=== PATIENT | male | born 1970 | race Caucasian/White ===

== ENCOUNTER 2020-05-09 07:09 | Outpatient (REF) | payer OTHER, SELFPAY | END 2020-05-09 07:10 | disposition home or self-care (01) | LOC: HO.LAB 07:09 | PROVIDERS: PCP Internal Medicine; Visit Provider Internal Medicine | DX: Z20.828 Contact with and (suspected) exposure to other viral communicable diseases (principal) | CPT/HCPCS: C9803; U0003 ==

== ENCOUNTER 2024-04-23 08:40 | Outpatient (REF) | payer OTHER, SELFPAY ==
[2024-04-23 10:24] LABS: Estimated Average Glucose 174 mg/dL; Hemoglobin A1C 233.4804 umol/L; Hemoglobin A1c % 7.7 % (<6.0); Total Hemoglobin (HGBA1C) 3843.4324 umol/L
[2024-04-23 11:02] LABS: Alanine Aminotransferase 23 U/L (0-40); Albumin Level 4.2 g/dL (3.5-5.0); Alkaline Phosphatase 56 U/L (39-117); Anion Gap 12 (12-20); Aspartate Amino Transferase 23 U/L (5-37); Bilirubin Total 1.1 mg/dL (0.0-1.0); Blood Urea Nitrogen 15 mg/dL (9-16); Calcium 9.4 mg/dL (8.4-10.2); Carbon Dioxide 23 mmol/L (22-29); Chloride 108 mmol/L (96-108); Cholesterol 125 mg/dL (<200); Estimated Glomerular Filt Rate > 60; Glucose Random 139 mg/dL (60-115); HDL Cholesterol 44 mg/dL (>40); LDL Cholesterol Calculated 63 mg/dL (<100); Potassium 3.7 mmol/L (3.3-5.1); Sodium 139 mmol/L (135-145); Total Protein 7.2 g/dL (6.5-8.0); Triglycerides 90 mg/dL (<150)
[2024-04-23 11:21] LABS: Prostate Specific Antigen 1.25 ng/mL (<0.05-4.0)
[2024-04-23 11:47] LABS: Creatinine Urine 172.33 mg/dL; Microalbum/Creatinine Ratio Ur 48.7 ug/mg cr (<30)
== END 2024-04-23 08:41 | disposition home or self-care (01) ==
LOC: HO.LAB 08:40
PROVIDERS: PCP Internal Medicine; Visit Provider Internal Medicine
DX: Z00.01 Encounter for general adult medical examination with abnormal findings (principal); E11.65 Type 2 diabetes mellitus with hyperglycemia; E78.00 Pure hypercholesterolemia, unspecified; I10 Essential (primary) hypertension; N40.0 Benign prostatic hyperplasia without lower urinary tract symptoms; Z12.5 Encounter for screening for malignant neoplasm of prostate
CPT/HCPCS: 36415; 80053; 80061; 82043; 82570; 83036; 84153

== ENCOUNTER 2024-06-18 14:11 | Outpatient (AMB) | payer OTHER, SELFPAY ==
--- NOTE | 2024-06-18 14:23 | A.OFFVIS_ITS ---
Intake Visit Reasons: lipoma of the back Intake Note: Patient is seen in office for evaluation of a lipoma of the back. Pt c/o: 2 lumps on the back, for aprox 8 months, has increase in size, painful with lifting and when lying down, denies redness, discharge or other concerns Group Billing Coordinator Required: No Accompanied by: Self / Same As Patient Allergies lisinopril Adverse Reaction (Intermediate, Verified 06/18/24 14:31) Unknown cow milk Adverse Reaction (Mild, Uncoded 06/18/24 14:31) Unknown egg whites Adverse Reaction (Mild, Uncoded 06/18/24 14:31) Unknown Medication List - Last Reconciled 06/18/24 by Michael Bay MD No Known Home Meds HPI Comments Details: 54-year-old male patient presenting with a soft tissue mass in the back. He 1st noted the lump several months ago and now feels a 2nd 1 slightly higher in the back. She reports pain especially after working out. He denies any changes in the skin including redness or discharge. He presents today to discuss possible removal. He denies a previous history of similar lesions in other parts of his body. [facility] Surgical History History of ankle surgery Social History Alcohol intake: current Alcohol intake frequency: holidays/special occasions only Patient Tobacco Use Status: Never used Tobacco Review of Systems Const All systems reviewed & are unremarkable except as noted in HPI and below Physical Exam Const General: cooperative and no acute distress Nutritional Appearance: well nourished Orientation/consciousness: patient oriented x3 Limitations: no limitations HEENT Head: Yes normocephalic and Yes atraumatic Ears: hearing grossly normal bilaterally Resp Effort & Inspection: normal respiratory effort, no audible wheezes, no cough and no respiratory distress Cardio Jugular venous distension: no JVD GI Inspection: Yes normal to inspection Back/Spine/Pelvis Other: Patient points to 2 lesions in the midline upper back as noted below Back/spine/pelvis image: 2 1. Hard nonmobile midline structure most consistent with thoracic spine. No soft tissue mass identified in this region. 2. Soft tissue mass, mobile within the subcutaneous tissue most consistent with a lipoma measuring approximately 4 cm in diameter. Skin Other: Warm, dry, no rash Neuro General: patient oriented x3 Extrem General: Yes no clubbing, cyanosis or edema Assessment & Plan Assessment & Plan (1) Lipoma: Code(s): D17.9 - Benign lipomatous neoplasm, unspecified Category: Medical Qualifiers: Lipoma location: trunk Qualified Code(s): D17.1 - Benign lipomatous neoplasm of skin and subcutaneous tissue of trunk Plan Patient presents with 2 palpable abnormalities 1 which appears most consistent with a lipoma in the lower thoracic spine and a 2nd which appears more consistent with the curvature of the spine. To be sure, I recommended an ultrasound of the soft tissue. He will return following the ultrasound to review the results and discuss treatment options. Orders: Orders 2 US chest Today D17.9 - Benign lipomatous neoplasm, unspecified Coding Level of Care Code New Pt Level 4 (00967) Diagnoses Lipoma of torso D17.1 Lipoma location: trunk
== END 2024-06-18 14:42 | disposition home or self-care (01) ==
PROVIDERS: PCP Internal Medicine; Visit Provider Surgery
DX: D17.1 Benign lipomatous neoplasm of skin and subcutaneous tissue of trunk (principal)
CPT/HCPCS: 99204

== ENCOUNTER 2024-07-02 16:18 | Outpatient (REF) | payer OTHER, SELFPAY ==
--- NOTE | ~2024-07-02 | US_ITS ---
CLINICAL HISTORY: D17.9 - Benign lipomatous neoplasm, unspecified Soft tissue ultrasound-back Comparison: None Findings: Directed soft tissue ultrasound performed of regions of concern, with region labeled as upper posterior back 1 demonstrating prominent subcutaneous fat. Conceivably could be demarcated unencapsulated lipoma. No other solid components or obvious septations. No well-defined margin. On on images labeled as posterior upper back to, calcific density with shadowing suggesting bony prominence, which may correlate to palpable abnormality. Otherwise no focal definable mass in either region by ultrasound. No fluid collection. No appreciable edema. Regions were not interrogated with Doppler and can not assess for hyperemia. Impression: Prominent subcutaneous adipose tissue appearing to correlate to lesion in the upper back as well as a bony prominence to 2nd area of concern. Further characterization limited with ultrasound. If clinically suspicious or concerning finding, consider additional correlation with CT or MRI. This document has been electronically signed by: Harpal Day MD on 07/03/2024 13:22:55
== END 2024-07-02 16:19 | disposition home or self-care (01) ==
LOC: HO.US 16:18
PROVIDERS: PCP Internal Medicine; Visit Provider Surgery
DX: D17.9 Benign lipomatous neoplasm, unspecified (principal)
CPT/HCPCS: 76604

== ENCOUNTER → 2024-07-02 16:20 | Outpatient (BNV) | payer OTHER, SELFPAY | PROVIDERS: PCP Internal Medicine; Visit Provider Radiology Diagnostic Radiology | DX: D17.9 Benign lipomatous neoplasm, unspecified (principal) | CPT/HCPCS: 76604 ==

== ENCOUNTER 2024-07-18 15:29 | Outpatient (AMB) | payer OTHER, SELFPAY ==
--- NOTE | 2024-07-18 15:35 | MHC.OFFVIS ---
Vital Signs 07/18/24 15:40 Height 5 ft 10 in Weight 217 lb BMI 31.1 BP 120/82 Blood Pressure Location Lt brachial Position Sitting Intake Visit Reasons: s/p US Chest from 07/02/24 Intake Note: Patient is seen in office for ultrasound results, following lipoma of the back. Pt c/o: denies any concerns or changes at the time of visit, here for results us:07/03/24 Clubhouse Attendant Required: No Accompanied by: Self / Same As Patient Allergies lisinopril Adverse Reaction (Intermediate, Verified 07/18/24 15:38) Unknown cow milk Adverse Reaction (Mild, Uncoded 07/18/24 15:38) Unknown egg whites Adverse Reaction (Mild, Uncoded 07/18/24 15:38) Unknown HPI Comments Details: 54-year-old male patient presenting with a soft tissue mass in the back. He 1st noted the lump several months ago and now feels a 2nd 1 slightly higher in the back. He reports pain especially after working out. He denies any changes in the skin including redness or discharge. He presents today to discuss possible removal. He denies a previous history of similar lesions in other parts of his body. He underwent evaluation with an ultrasound of the back. This confirmed a lipoma in the lower lesion however the upper lesion is consistent with the spine. No lipoma is noted in this location [facility] Surgical History History of ankle surgery Social History Alcohol intake: current Alcohol intake frequency: holidays/special occasions only Patient Tobacco Use Status: Never used Tobacco Review of Systems Const All systems reviewed & are unremarkable except as noted in HPI and below Physical Exam Vital Signs: Last Vital Signs BP 120/82 07/18/24 15:40 BMI result Body Mass Index 31.1 Const General: cooperative and no acute distress Nutritional Appearance: well nourished Orientation/consciousness: patient oriented x3 Limitations: no limitations HEENT Head: Yes normocephalic and Yes atraumatic Ears: hearing grossly normal bilaterally Resp Effort & Inspection: normal respiratory effort, no audible wheezes, no cough and no respiratory distress Cardio Jugular venous distension: no JVD GI Inspection: Yes normal to inspection Back/Spine/Pelvis Other: Patient points to 2 lesions in the midline upper back as noted below Back/spine/pelvis image: 1. 5-6 cm lipoma upper mid back, mobile within the subcutaneous tissue Skin Other: Warm, dry, no rash Neuro General: patient oriented x3 Extrem General: Yes no clubbing, cyanosis or edema Assessment & Plan Assessment & Plan (1) Lipoma: Code(s): D17.9 - Benign lipomatous neoplasm, unspecified Category: Medical Qualifiers: Lipoma location: trunk Qualified Code(s): D17.1 - Benign lipomatous neoplasm of skin and subcutaneous tissue of trunk Plan 54-year-old male patient presenting with a soft tissue mass in the upper midback measuring approximately 5-6 cm in diameter most consistent with a lipoma by exam and by ultrasound. Patient has requested excision of this lesion and I recommended an excision as a short-stay surgery. After discussion of the procedure, risks, and alternatives, he consents to the excision of the upper midback lipoma Coding Level of Care Code Est Pt Level 3 (46954) Diagnoses Lipoma of torso D17.1 Lipoma location: trunk
[2024-07-18 15:40] VITALS: BP 120/82; BMI 31.1
--- OUTSIDE RECORDS SUMMARY | 2024-07-18 18:23 | XMS_ITS | Encounter Summary ---
Author Organization [employer] Address [address] [place] [address] Care Team Providers Care News Production Assistant Name Role Phone Natalee Lopez MD Primary Care Provider [phone] Reason for Visit * Reason Comments Cough X 2 wks pt states co ugh is getting worse pt was seen and treated here tato 06/17/24 Encounter Details Date Type Department Care Team (Late st Contact Info) Description 07/01/2024 3:00 PM EST Office Visit [facility] - [place] [address] [place] [phone] Harpal Crump, DENTAL HYGIENE ADMINISTRATIVE ASSISTANT [address], [place] [id number] Rhinosinusitis (Primary Dx) Social History Tobacco Use Types Packs/Day Years Used Date Smoking Tobacco: Never Assessed Sex and Gender Information Value Date Recorded Sex Assigned at Not on file Gender Identity Not on file Sexual Orientation Not on file Job Start Date Occupation Industry Not on file Not on file Not on file documented as of this encounter Last Filed Vital Signs Vital Sign Reading Time Taken Comments Blood Pressure 130/78 07/01/2024 2:57 PM EST Pulse 88 07/01/2024 2:57 PM EST Temperature 36.6 ??C (97.8 ??F) 07/01/2024 2:57 PM ES T Respiratory Rate - - Oxygen Saturation 98% 07/01/2024 2:57 PM EST Inhaled Oxygen Concentration - - Weight - - Height - - Body Mass Index - - documented in this encounter Ordered Prescriptions Prescription Sig Dispensed Refills Start Date End Da te cetirizine (ZyrTEC) 10 mg tablet Take 1 tablet (10 mg total) by mouth 1 (one) time each day. 30 each 2 07/01/2024 09/29/2024 fluticasone propionate (FLONASE) 50 mcg/actuation nasal spray Administer 2 sprays into each nostril 1 (one) time each day for 14 days. Shake gently. Before first use, prime pump. After use, clean tip and replace cap. 16 g 07/01/2024 documented in this encounter Progress Notes * Harpal Crump NP - 07/01/2024 3:00 PM EST CHIEF COMPLAINT: Cough (X 2 wks pt states cough is getting worse pt was seen and treated here tato 06/17/24 ) IDENTIFIER: Tarik Ny is a 54 y.o. old male. HPI: Patient presents today complaining of cough for 2 week(s). Cough is not productive of sputum. denies shortness of breath. denies wheezing. Patient denies fevers. Patient also complains of post nasal drip and sinus and nasal congestion. Also endorses itchy ears and itchy nose. Patient was seen at this urgent care on 06/17/2024 and diagnosed with sinusitis and otitis media of both ears. He was given Augmentin and completed the entire course of antibiotic. Patient advises that symptoms did not go away. They also have not worsened ROS: GENERAL: SEE HPI HEENT: SEE HPI RESPIRATORY: See HPI CARDIOVASCULAR: SEE HPI GI: No abdominal discomfort, blood in stools or black stools PAST MEDICAL HISTORY: There are no problems to display for this patient. No past surgical history on file. SOCIAL HISTORY: Social History Tobacco Use Smoking status: Not on file Smokeless tobacco: Not on file Substance Use Topics Alcohol use: Not on file FAMILY HISTORY: No family history on file. No family status information on file. MEDICATIONS DISCONTINUED/REORDERED: There are no discontinued medications. ACTIVE MEDICATIONS: No outpatient medications have been marked as taking for the 07/01/24 encounter (Office Visit) with Harpal Crump NP. ALLERGIES: Allergies Allergen Reactions Lisinopril Anaphylaxis Swollen tongue PHYSICAL EXAM: Vitals: 07/01/24 1457 BP: 130/78 BP Location: Right arm Pulse: 88 Temp: 36.6 ??C (97.8 ??F) TempSrc: Temporal SpO2: 98% APPEARANCE: Alert and in no acute distress EYES: PERRL, conjunctiva and sclera normal EARS: External ears normal. Canals clear. TMs normal. NOSE/SINUS: Nares normal. Septum midline. Mucosa boggy with congestion. Turbinates with erythema. No drainage. No sinus tenderness. MOUTH/THROAT: mild erythema post pharangeal wall with PND noted and no exudates present NECK: negative HEART: RRR with normal S1 and S2, no murmurs, no gallops, no JVD appreciated LUNG: Clear to auscultation LYMPH NODES: grossly normal NEURO: Awake, alert and oriented x 3 LABS/IMAGING: Chest xray was not ordered IMPRESSION: 1. Rhinosinusitis PLAN: The patient's PMH, problem list and medications were reviewed in reference to the above diagnosis/diagnoses. *. Based on History, ROS, HPI and PE, presents hemodynamically stable in no acute distress. Well-appearing. *. Based on HPI, ROS and PE, suggestive of allergic rhinosinusitis. Patient's symptoms are consistent with a rhinosinusitis. Further Augmentin was unsuccessful. *. Prescribed Flonase and Zyrtec. Proper dosing and method to take medication addressed with patient. The risks and benefits of this medication were discussed with the patient. The patient understands the potential side effects and basic interactions of this medication. The patient is asked to callme or my colleagues if they begin to experience any difficulties with this medication. *. Educated pt to rest,proper hydration, warm steamy showers *. Advised to follow up with PCP in 14 days, if symptoms are not improving. Advised to follow up with PCP immediately for new or worsening symptoms. *. Discussed warnings signs and symptoms that would require immediate follow up at UC/ER. Patient verbalized understanding and agreement with the plan. Harpal Crump NP on 07/01/2024 at 3:11 PM EST Today's documentation was made using voice recognition software. This note may contain grammatical errors secondary to this software. documented in this encounter Plan of Treatment Not on file documented as of this encounter Visit Diagnoses Diagnosis Rhinosinusitis- Primary documented in this encounter Care Teams News Production Assistant Relationship Specialty Start Date End Date Natalee Lopez MD [address] [facility] [address] [place], [place] PCP - General Internal Medicine 04/30/20 documented as of this encounter
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
--- OUTSIDE RECORDS SUMMARY | 2024-07-18 18:23 | XMS_ITS | Clinical Summary ---
Author Organization [address] [place] [address] [place] [phone] Phone Care Team Providers Care Anatomic Pathology Manager Name Role Phone Natalee Lopez MD Primary Care Provider [phone] Allergies Active Allergy Reactions Criticality Noted Date Comments Lisinopril Anaphylaxis High 07/01/2024 Swollen tongue Medications Medication Sig Dispensed Refills Start Date End Date Status fluticasone propionate (FLONASE) 50 mcg/actuation nasal spray Administer 2 sprays into each nostril 1 (one) time each day for 14 days. Shake gently. Before first use, prime pump. After use, clean tip and replace cap. 16 g 07/01/2024 Active cetirizine (ZyrTEC) 10 mg tablet Take 1 tablet (10 mg total) by mouth 1 (one) time each day. 30 each 2 07/01/2024 09/29/2024 Active amoxicillin-clavula jerad (AUGMENTIN) 875-125 mg per tablet Take 1 tablet by mouth 2 (two) times a day for 10 days. 20 each 06/17/2024 06/27/2024 Encounters Date Type Department Care Team Description 07/01/2024 3:00 PM EST Office Visit Walk-In [address] [phone] Harpal Crump NP Rhinosinusitis (Primary Dx) 06/17/2024 4:30 PM EST Office Visit Walk-[address] [phone] Shahana Sahu NP Otitis of both ears (Primary Dx); Upper respiratory tract infection, unspecified type from Last 3 Months Social History Tobacco Use Types Packs/Day Years Used Date Smoking Tobacco: Never Assessed Sex and Gender Information Value Date Recorded Sex Assigned at Not on file Gender Identity Not on file Sexual Orientation Not on file Job Start Date Occupation Industry Not on file Not on file Not on file Last Filed Vital Signs [...] Health Maintenance Due Date Last Done Comments Hepatitis B Vaccines (3 of 3 - 19+ 3-dose series) 03/11/2004 12/18/2003, 09/09/2003 Zoster Vaccines (1 of 2) 2019 COVID-19 Vaccine ( - 2023-2 5 season) 2024 Influenza Vaccine (#1) 2024 04/02/2019 Cholesterol Screening (Lipid Panel) 06/18/2024 Colorectal Cancer Screening: Colonoscopy 06/18/2024 Depression Screening 06/18/2024 HIV Screening 06/18/2024 Hepatitis C Screening 06/18/2024 Social Influencers of Health Screening 06/18/2024 DTaP,Tdap,and Td Vaccines (2 - Td or Tdap) 11/22/2030 11/22/2020 Pneumococcal Vaccine: Pediatrics (0 to 5 Years) and At-Risk Patients (6 to 64 Years) Aged Out 01/01/2016 No longer eligible b ased on patient's age to complete this topic HIB Vaccines Aged Out No longer eligi ble based on patient's age to complete this topic HPV Vaccines Aged Out No longer eligi ble based on patient's age to complete this topic Hepatitis A Vaccines Aged Out No long er eligible based on patient's age to complete this topic IPV Vaccines Aged Out No longer eligi ble based on patient's age to complete this topic MMR Vaccines Aged Out No longer eligi ble based on patient's age to complete this topic Meningococcal ACWY Vaccine Aged Out N o longer eligible based on patient's age to complete this topic RSV Immunization Patients Under 20 months Aged Out No longer eligible b ased on patient's age to complete this topic Varicella Vaccines Aged Out No longer eligible based on patient's age to complete this topic Procedures Procedure Name Priority Date/Time Associated Diagnosis Comments POC INFLUENZA A&B BECKA Routine 06/17/2024 5:09 PM EST Upper respiratory tract infection, unspecified type POC RAPID [id number], MOLECULAR Routine 06/17/2024 5:08 PM EST Upper respiratory tract infection, unspecified type from Last 3 Months Results * POC Influenza A&B BECKA (06/17/2024 5:09 PM EST) POC Ashtyn Flu A Antigen Negative Negative POC Ashtyn Flu B Antigen Negative Negative Swab Nasopharyngeal structure / Unknown 06/17/2024 5:09 PM EST Shahana Sahu MANAGER CARD POINT OF CARE TEST E NTER/EDIT ORDERABLES * Poc Rapid [id number], MOLECULAR (06/17/2024 5:08 PM EST) COVID-19/SARS- COV-2 Rapid POC Negative Negative Internal Control Pass Yes Yes Swab Nasopharyngeal structure / Unknown 06/17/2024 5:08 PM EST Shahana Sahu MANAGER CARD POINT OF CARE TEST E NTER/EDIT ORDERABLES from Last 3 Months Care Teams Anatomic Pathology Manager Relationship Specialty Start Date End Date Natalee Lopez MD [address] PCP - General Internal Medicine 04/30/20
== END 2024-07-18 15:54 | disposition home or self-care (01) ==
PROVIDERS: PCP Internal Medicine; Visit Provider Surgery
DX: D17.1 Benign lipomatous neoplasm of skin and subcutaneous tissue of trunk (principal)
CPT/HCPCS: 99213

== ENCOUNTER → 2024-07-18 15:29 | Outpatient (BNVA) | payer OTHER, SELFPAY | PROVIDERS: PCP Internal Medicine; Visit Provider Surgery ==

== ENCOUNTER 2024-08-21 08:10 | Day surgery (SDC) | payer OTHER, SELFPAY ==
[2024-08-19 13:26] VITALS: BMI 31.1
--- NOTE | 2024-08-19 15:11 | P.CONAN_ITS ---
Documented by User: Hellen Mayberry NP 08/19/24 15:11 HPI - Anesthesia Eval Consult details Narrative: 54yo M for Large Excision Lipoma Upper Mid Back Anesthesia Pre-Procedure Meds Is the patient on any of the following meds?: GLP1/DPP4 and SGLT2 Inhib PMFSH Active Problems Active Problems: All Active Problems Lipoma (Acute) Past Medical History Medical History High cholesterol Hypertension Diabetes Surgical History Surgical History History of ankle surgery Social History Social History Alcohol intake: current Alcohol intake frequency: holidays/special occasions only Patient Tobacco Use Status: Never used Tobacco Advance Directives: No Advance Directives Information Provided: Yes Meds Allergies Allergy/AdvReac Type Severity Reaction Status Date / Time lisinopril AdvReac Unknown Unknown Verified 08/19/24 13:14 Milk Containing Products AdvReac Unknown Unknown Verified 08/19/24 13:14 (Dairy) egg whites AdvReac Unknown Unknown Uncoded 08/19/24 13:14 Home Medications ?Medication ?Instructions ?Recorded ?Confirmed ?Last Taken ?Type amlodipine 10 mg tablet 10 mg PO DAILY 06/18/24 08/19/24 Unknown History atorvastatin 80 mg tablet 80 mg PO DAILY 06/18/24 08/19/24 Unknown History carvedilol 25 mg tablet 25 mg PO BID 06/18/24 08/19/24 Unknown History dulaglutide 0.75 mg/0.5 mL 0.75 mg subcut QWEEK 06/18/24 08/19/24 Unknown History subcutaneous pen injector (Trulicity) empagliflozin 25 mg tablet 25 mg PO DAILY 06/18/24 Unknown History (Jardiance) insulin glargine 100 unit/mL 25 unit subcut BID 06/18/24 08/19/24 Unknown History subcutaneous solution (Lantus U-100 Insulin) loratadine 10 mg tablet (Allergy 10 mg PO DAILY 06/18/24 08/19/24 Unknown History Relief (loratadine)) metformin 1,000 mg tablet 1,000 mg PO DAILY 06/18/24 08/19/24 Unknown History omalizumab 150 mg/mL subcutaneous 150 mg subcut Q4W 06/18/24 08/19/24 Unknown History auto-injector (Xolair) Exam Height,Weight and Vital Signs: Height 5 ft 10 in Weight 98.43 kg Assessment and Plan Assessment Anesthesia Assessment: Chart Reviewed Documented by User: Sharee Gross MD 08/21/24 08:33 PMFSH Past Medical History Medical History High cholesterol Hypertension Diabetes Family History Family history of problems with anesthesia: No Surgical History Surgical History History of ankle surgery History of Problems with Anesthesia: No Social History Social History Alcohol intake: current Alcohol intake frequency: holidays/special occasions only Patient Tobacco Use Status: Never used Tobacco Advance Directives: No Advance Directives Information Provided: Yes Meds Allergies Allergy/AdvReac Type Severity Reaction Status Date / Time lisinopril AdvReac Unknown Unknown Verified 08/19/24 13:14 Milk Containing Products AdvReac Unknown Unknown Verified 08/19/24 13:14 (Dairy) egg whites AdvReac Unknown Unknown Uncoded 08/19/24 13:14 Home Medications ?Medication ?Instructions ?Recorded ?Confirmed ?Last Taken ?Type amlodipine 10 mg tablet 10 mg PO DAILY 06/18/24 08/19/24 Unknown History atorvastatin 80 mg tablet 80 mg PO DAILY 06/18/24 08/19/24 Unknown History carvedilol 25 mg tablet 25 mg PO BID 06/18/24 08/19/24 Unknown History dulaglutide 0.75 mg/0.5 mL 0.75 mg subcut QWEEK 06/18/24 08/19/24 Unknown H istory subcutaneous pen injector (Trulicity) empagliflozin 25 mg tablet 25 mg PO DAILY 06/18/24 Unknown History (Jardiance) insulin glargine 100 unit/mL 25 unit subcut BID 06/18/24 08/19/24 Unknown History subcutaneous solution (Lantus U-100 Insulin) loratadine 10 mg tablet (Allergy 10 mg PO DAILY 06/18/24 08/19/24 Unknown History Relief (loratadine)) metformin 1,000 mg tablet 1,000 mg PO DAILY 06/18/24 08/19/24 Unknown History omalizumab 150 mg/mL subcutaneous 150 mg subcut Q4W 06/18/24 08/19/24 Unknown History auto-injector (Xolair) Exam Airway Mallampati Class: II TM Dist: >3cm Neck ROM: Full Heart: rrr Lungs: cta Assessment and Plan Assessment Anesthesia Assessment: Anesthesia Plan Discussed Final Anesthetic Review Family History of Problems with Anesthesia: No History of Problems with Anesthesia: No NPO: Yes ASA Class: III Final Preanesthetic Review: No Changes in Pt Med Stat, Meds/Allgs Chart Reviewed, Consent Obtained/Reviewed and Anes Risks/Benef Reviewed Patient Risk: Intermediate Procedure Risk: Low Anesthetic Plan Anesthetic Plan: GA and MAC: Disposition: Standard PACU
--- NOTE | 2024-08-21 08:30 | MHC.SHP ---
Pre-Procedural Eval Section A - 24 Hr Update-Section A only Date of Service: 08/21/24 The patient is an INPATIENT: No Changes since office visit: Yes Patient answered all questions; No Cold of Flu in the past 2 weeks, No New Medical Problems and No Changes in Medication The patient has been examined within 24 hours of the surgical procedure. The History & Physical has been completed within 30 days and I have reviewed it.: No Section B - Complete if H&P > 30 days Chief Complaint: Benign lipomatous neoplasm of skin and subcutaneou Details of Present Illness: Patient reports the lipoma has increased in size since last visit Relevant Family History (Specify if Yes): No Relevant Social History: None Present Medications: None Medical History: No relevant PMH History of Previous Operations: No relevant previous surgery Allergies: Allergies Allergy/AdvReac Type Severity Reaction Status Date / Time lisinopril AdvReac Unknown Unknown Verified 08/19/24 13:14 Milk Containing Products AdvReac Unknown Unknown Verified 08/19/24 13:14 (Dairy) egg whites AdvReac Unknown Unknown Uncoded 08/19/24 13:14 Review of Systems Sugical H&P ROS: Negative: Constitution, Cardiovascular, Respiratory, Neurological, Allergic/Immunologic, Gastrointestinal, Genitourinary, Musculoskeletal and Integumentary Exam Surgical H&P Exam: Normal: HEENT, Normal: Heart, Normal: Lungs, Normal: Extremities, Normal: Abdomen and Normal: Skin Plan Diagnosis/Plan: Unchanged I have reviewed the history and physical and performed a pertinent physical examination on my patient. No changes have occurred unless specified. Time Spent With Patient Time: Total time managing care of this patient today ____ minutes.
[2024-08-21 09:17] VITALS: BP 160/87; PULSE 77; RESP 16; TEMP 36.2; O2SAT 97; BMI 31.1
[2024-08-21] MEDS: Lactated Ringers 1,000 ML 100 ML IVCONT (09:22)
[2024-08-21 09:24] LABS: Glucose, Whole Blood 177 mg/dL (60-115)
--- NOTE | 2024-08-21 10:09 | W.PM.OPN ---
Operative Note Operative Note Date of Service: 08/21/24 Narrative: Preoperative diagnosis: Lipoma upper mid back Postoperative diagnosis: Same Procedure: Excision of lipoma upper midback Surgeon: Michael Bay MD Software Engineering Manager: Desirae Brooks PA-C; JOANNA Mendoza Anesthesia: Mac plus local Indications for procedure: 54-year-old male patient presenting with a gradually enlarging soft tissue mass of the upper midback. On examination the patient is found to have a painful lump in the upper mid back measuring approximately 6 cm in diameter. Operative findings: Multiloculated lipoma in the subcutaneous tissue measuring 6 cm in diameter total. Specimen: Lipoma midback Estimated blood loss: 10 mL Complications: None Procedure details: Patient was brought to the OR and placed in a prone position. The patient was administered sedation and the skin was prepped with ChloraPrep and draped in a sterile fashion. A surgical time-out was called the consent confirmed. Patient received preoperative antibiotics and Venodyne boots were in place. Local anesthesia was then infiltrated in the midline longitudinal fashion. Incision was then made measuring approximately 4 cm in carried out through subcutaneous tissue up to lipoma. Electrocautery was then used to excise the lipoma from the subcutaneous tissue. The lipoma was noted to be very multiloculated. Hemostasis was assured using electrocautery. The lesion was completely excised and sent to pathology for further examination. The wounds were irrigated with saline solution and suctioned dry. Deep subcutaneous tissue was then reapproximated using interrupted 3-0 Polysorb sutures. Dermis was reapproximated using interrupted 3-0 Polysorb sutures. Skin was then closed using a running subcuticular 4-0 Polysorb suture. Steri-Strips, 2 x 2 gauze and Tegaderm were then applied. The patient tolerated the procedure well. Sponge, instrument, and needle counts reported as correct. The patient was transferred to PACU in stable condition.
[2024-08-21 10:22] VITALS: BP 133/88; PULSE 84; RESP 17; TEMP 36.6; O2SAT 98
[2024-08-21 10:37] VITALS: BP 150/99; PULSE 74; RESP 16; TEMP 36.1; O2SAT 99
== END 2024-08-21 11:06 | disposition home or self-care (01) ==
PROVIDERS: PCP Internal Medicine; Visit Provider Surgery
PROC: (CPT 21931; principal; 2024-08-21 10:10)
DX: D17.1 Benign lipomatous neoplasm of skin and subcutaneous tissue of trunk (principal); I10 Essential (primary) hypertension; E78.00 Pure hypercholesterolemia, unspecified; E11.9 Type 2 diabetes mellitus without complications; Z79.4 Long term (current) use of insulin; Z79.84 Long term (current) use of oral hypoglycemic drugs; Z79.85 Long-term (current) use of injectable non-insulin antidiabetic drugs; Z79.899 Other long term (current) drug therapy; Z88.8 Allergy status to other drugs, medicaments and biological substances; Z91.012 Allergy to eggs; Z91.011 Allergy to milk products; Z98.890 Other specified postprocedural states
CPT/HCPCS: 21931; 82947; 88304; J0690; J2003; J2704; J3010

== ENCOUNTER → 2024-08-21 08:10 | Outpatient (BNV) | payer OTHER, SELFPAY | PROVIDERS: PCP Internal Medicine; Visit Provider Surgery | DX: D17.1 Benign lipomatous neoplasm of skin and subcutaneous tissue of trunk (principal) | CPT/HCPCS: 21931 ==

== ENCOUNTER 2024-09-05 15:39 | Outpatient (AMB) | payer OTHER, SELFPAY ==
[2024-09-05 15:42] VITALS: BP 133/91; BMI 31.6
--- NOTE | 2024-09-05 15:42 | A.OFFVIS_ITS ---
Vital Signs 3 09/05/24 15:42 Height 5 ft 10 in Weight 220 lb 7.396 oz BMI 31.6 BP 133/91 H Blood Pressure Location Rt brachial Position Sitting Intake Visit Reasons: S/P exc. Lg. lipoma from upper mid back Intake Note: Patient in office today s/p excision of lipoma from upper back. CC: Patient denies pain or drainage form incision site. Bankruptcy Assistant Required: No Accompanied by: Self / Same As Patient Allergies lisinopril Adverse Reaction (Unknown, Verified 09/05/24 15:46) Unknown Milk Containing Products (Dairy) Adverse Reaction (Unknown, Verified 09/05/24 15:46) Unknown egg whites Adverse Reaction (Unknown, Uncoded 08/19/24 13:14) Unknown Medication List - Last Reconciled 09/05/24 by Michael Bay MD amlodipine 10 mg PO DAILY atorvastatin 80 mg PO DAILY carvedilol 25 mg PO BID dulaglutide (Trulicity) mg subcut insulin glargine (Lantus U-100 Insulin) 25 units subcut BID loratadine (Allergy Relief (loratadine)) 10 mg PO DAILY metformin 1,000 mg PO DAILY omalizumab (Xolair) 150 mg subcut Q4W oxycodone 5 mg PO Q6H PRN HPI Comments Details: 54-year-old male patient returning 1 week following excision of a large lipoma of the back. He tolerated the procedure well and returns today for wound check. He denies any bleeding or discharge from the incision. Pathology confirmed lipoma. [facility] Medical History High cholesterol Hypertension Diabetes Surgical History Status post excision of lipoma (08/21/24) History of ankle surgery Social History Alcohol intake: current Alcohol intake frequency: holidays/special occasions only Patient Tobacco Use Status: Never used Tobacco Physical Exam Vital Signs: Last Vital Signs BP 133/91 H 09/05/24 15:42 BMI result Body Mass Index 31.6 Const General: comfortable Nutritional Appearance: well nourished Orientation/consciousness: patient oriented x3 Resp Effort & Inspection: normal respiratory effort Back/Spine/Pelvis Other: Longitudinal incision in the mid back is clean, dry, and intact without redness or discharge. There may be a small seroma but no evidence of infection. Back/spine/pelvis image: 2 1. Incision midback Neuro General: patient oriented x3 Assessment & Plan Assessment & Plan (1) Lipoma: Code(s): D17.9 - Benign lipomatous neoplasm, unspecified Category: Medical Qualifiers: Lipoma location: trunk Qualified Code(s): D17.1 - Benign lipomatous neoplasm of skin and subcutaneous tissue of trunk Plan 54-year-old male patient returning 1 week following excision of a large lipoma of the back. He tolerated the procedure well the wounds are healing nicely. He should follow up as needed. Coding Level of Care Code Global (95519) Diagnoses Lipoma of torso D17.1 Lipoma location: trunk
--- OUTSIDE RECORDS SUMMARY | 2024-09-05 19:09 | XMS_ITS | Clinical Summary ---
Author Organization [address] [place] [address] [place] [phone] Phone Care Team Providers Care Special Delivery Messenger Name Role Phone Natalee Lopez MD Primary Care Provider [phone] Allergies Active Allergy Reactions Criticality Noted Date Comments Lisinopril Anaphylaxis High 07/01/2024 Swollen tongue Medications fluticasone propionate (FLONASE) 50 mcg/actuation nasal spray Administer 2 sprays into each nostril 1 (one) time each day for 14 days. Shake gently. Before first use, prime pump. After use, clean tip and replace cap. 16 g 5 Active cetirizine (ZyrTEC) 10 mg tablet Take 1 tablet (10 mg total) by mouth 1 (one) time each day. 30 each 2 5 09/30/19 25 Active Encounters Date Type Department Care Team Description 07/01/2024 3:00 PM EST Office Visit [facility] [phone] Harpal Crump NP Rhinosinusitis (Primary Dx) 06/17/2024 4:30 PM EST Office Visit [facility] [address] Shahana Sahu NP Otitis of both ears (Primary Dx); Upper respiratory tract infection, unspecified type from Last 3 Months Social History Tobacco Use Types Packs/Day Years Used Date Smoking Tobacco: Never Assessed Sex and Gender Information Value Date Recorded Sex Assigned at Not on file Legal Sex Male 8:37 PM EST Gender Identity Not on file Sexual [...] - 19+ 3-dose series) 03/11/2004 12/18/2003, 09/09/2003 Pneumococcal Vaccine: 50+ Years (2 of 2 - PCV) 2019 01/01/2016 Zoster Vaccines (1 of 2) 2019 COVID-19 Vaccine (1 - 2023-2 5 season) 2024 Influenza Vaccine [...] patient's age to complete this topic Meningococcal B Vacine Aged Out No lo nger eligible based on patient's age to complete [...] respiratory tract infection, unspecified type POC RAPID [id number], MOLECULAR Routine 06/17/2024 5:08 PM EST Upper respiratory tract infection, unspecified type from Last 3 Months Results * POC Influenza A&B BECKA (06/17/2024 5:09 PM EST) POC [place] Flu A Antigen Negative Negative POC [place]yn Flu B Antigen Negative Negative Swab Nasopharyngeal structure / Unknown 06/17/2024 5:09 PM EST Shahana Sahu EXTRUSION LINE OPERATOR POINT OF CARE TEST ENTER/EDIT ORDERABLES Final Result * Poc Rapid [id number], MOLECULAR (06/17/2024 5:08 PM EST) COVID-19/SARS- COV-2 Rapid POC Negative Negative Internal Control Pass Yes Yes Swab Nasopharyngeal structure / Unknown 06/17/2024 5:08 PM EST us Shahana Sahu EXTRUSION LINE OPERATOR POINT OF CARE TEST ENTER/EDIT ORDERABLES Final Result from Last 3 Months Insurance [facility] [address] [place] [address] Care Teams Special Delivery Messenger Relationship Specialty Start Date End Date Natalee Lopez MD [address] [place] [address] PCP - General Internal Medicine 04/30/20
== END 2024-09-05 15:51 | disposition home or self-care (01) ==
LOC: HO.HGS 15:39
PROVIDERS: PCP Internal Medicine; Visit Provider Surgery
DX: D17.1 Benign lipomatous neoplasm of skin and subcutaneous tissue of trunk (principal)
CPT/HCPCS: 99024

== ENCOUNTER → 2024-09-05 15:39 | Outpatient (BNVA) | payer OTHER, SELFPAY | PROVIDERS: PCP Internal Medicine; Visit Provider Surgery ==

== ENCOUNTER 2024-12-31 08:47 | Outpatient (REF) | payer OTHER, SELFPAY ==
--- OUTSIDE RECORDS SUMMARY | 2024-12-31 09:03 | XMS_ITS | Clinical Summary ---
Author Organization [address] Address [address] [place] [address] Care Team Providers Care Breaker Up Machine Operator Name Role Phone Natalee Lopez MD Primary Care Provider [phone] Allergies Active Allergy Reactions Criticality Noted Date [...] 70 11/27/2020 1:31 PM EDT Temperature 36.7 C (98 F) 11/27/2020 1:31 PM EDT Respiratory Rate 18 [...] cancer screening, Colonoscopy 2014 Diabetes screening 2014 Pneumococcal Vaccine (50+ ye ars) (1 of 1 - PCV) 2019 Shingles vaccine (Shingrix) (1 of 2 - Shingrix (RZV) 2 Dose Standard Series) 2019 Covid-19 vaccine series (1 - 2023-25 season) 2024 Influenza vaccine 02/24/2025 RSV Immunization (1 - 1-dose 75+ series) 02/27/2044 Meningococcal Vaccine Aged Out No asim armani eligible based on patient's age to complete this topic Insurance [employer]CIAL [employer] 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
--- OUTSIDE RECORDS SUMMARY | 2024-12-31 09:03 | XMS_ITS | Clinical Summary ---
Author Organization [address] [place] [address] [place] [phone] Phone Care Team Providers Care Diet Aide Name Role Phone Natalee Lopez MD Primary Care Provider [phone] Allergies Active Allergy Reactions Criticality Noted Date [...] time each day. 30 each 2 5 Active Social History Tobacco Use Types Packs/Day Years [...] 88 07/01/2024 2:57 PM EST Temperature 36.6 C (97.8 F) 07/01/2024 2:57 PM EST Respiratory Rate - - Oxygen Saturation 98% [...] Vaccine (1 - 2023-2 5 season) 2024 Cholesterol Screening (Lipid Panel) 06/18/2024 Colorectal Cancer Screening: Colonoscopy 06/18/2024 Depression Screening 06/18/2024 HIV Screening 06/18/2024 Hepatitis C Screening 06/18/2024 Social Influencers of Health Screening 06/18/2024 Influenza Vaccine (#1) 2025 04/02/2019 DTaP,Tdap,and Td Vaccines (2 - Td or Tdap) 11/22/2030 11/22/2020 HIB Vaccines Aged Out No longer eligi [...] age to complete this topic Meningococcal B Vaccine Aged Out No l onger eligible based on patient's age to complete this topic RSV Immunization Patients Under 20 months Aged Out No longer eligible b ased on patient's age to complete this topic Varicella Vaccines Aged Out No longer eligible based on patient's age to complete this topic Insurance [facility] [place] [phone] [facility] [address] [place] [address] Care Teams Diet Aide Relationship Specialty Start Date End Date Natalee Lopez MD [address] [facility] [address] [place], [place] PCP - General Internal Medicine 04/30/20
[2024-12-31 09:47] LABS: Hemoglobin A1C 278.2581 umol/L; Total Hemoglobin (HGBA1C) 3877.5151 umol/L
[2024-12-31 10:44] LABS: Microalbum/Creatinine Ratio Ur 80.6 ug/mg cr (<30)
[2024-12-31 10:51] LABS: Alanine Aminotransferase 26 U/L (0-40); Albumin Level 4.4 g/dL (3.5-5.0); Alkaline Phosphatase 54 U/L (39-117); Anion Gap 10 (12-20); Aspartate Amino Transferase 20 U/L (5-37); Blood Urea Nitrogen 18 mg/dL (9-16); Calcium 9.5 mg/dL (8.4-10.2); Carbon Dioxide 28 mmol/L (22-29); Chloride 104 mmol/L (96-108); Cholesterol 135 mg/dL (<200); Estimated Glomerular Filt Rate > 60; HDL Cholesterol 40 mg/dL (>40); Potassium 4.3 mmol/L (3.3-5.1); Sodium 138 mmol/L (135-145); Total Protein 7.0 g/dL (6.5-8.0); Triglycerides 105 mg/dL (<150)
== END 2024-12-31 08:48 | disposition home or self-care (01) ==
LOC: HO.LAB 08:47
PROVIDERS: PCP Internal Medicine; Visit Provider Internal Medicine
DX: E78.00 Pure hypercholesterolemia, unspecified (principal); E11.9 Type 2 diabetes mellitus without complications; I10 Essential (primary) hypertension; R80.8 Other proteinuria; R06.02 Shortness of breath
CPT/HCPCS: 36415; 80053; 80061; 82043; 82570; 83036; 84153

== ENCOUNTER 2025-02-12 09:09 | Outpatient (AMB) | payer OTHER, SELFPAY ==
--- NOTE | 2025-02-12 09:21 | A.OFFVIS_ITS ---
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 Allergies lisinopril Adverse Reaction (Unknown, Verified 09/05/24 15:46) Unknown Milk Containing Products (Dairy) Adverse Reaction (Unknown, Verified 09/05/24 15:46) Unknown egg whites Adverse Reaction (Unknown, Uncoded 08/19/24 13:14) Unknown Medication List - Last Reconciled 02/12/25 by Louis Prakash MD amlodipine 10 mg PO DAILY atorvastatin 80 mg PO DAILY carvedilol 25 mg PO BID dulaglutide (Trulicity) mg subcut insulin glargine (Lantus U-100 Insulin) 25 units subcut BID metformin 1,000 mg PO DAILY oxycodone 5 mg PO Q6H PRN HPI Comments Details: The patient is a 54-year-old male presenting with dyspnea. The dyspnea began approximately three months ago, with an initial episode occurring at work while attempting to tie his shoes. The patient reports that the dyspnea occurs intermittently, sometimes during walking or physical activity, but not consistently. He does not have any exertional angina. The patient has a history of diabetes mellitus, hyperlipidemia, and hypertension. He monitors his blood pressure, which has been recorded as high as 160 mmHg. The patient is physically active, working in a [employer] [facility] where he walks frequently, although he has reduced heavy lifting due to a rotator cuff injury. No previously documented coronary disease or myocardial infarction or cardiomyopathy. [facility] Medical History (Updated 02/12/25 @ 09:45 by Louis Prakash MD) High cholesterol Hypertension Diabetes Surgical History Status post excision of lipoma (08/21/24) History of ankle surgery Family History (Updated 02/12/25 @ 09:32 by Vicenta Colon) Mother Bradycardia Father Stented coronary artery Social History Alcohol intake: current Alcohol intake frequency: holidays/special occasions only Patient Tobacco Use Status: Never used Tobacco Review of Systems Const Denies weakness ENT Denies dizziness Card Denies chest pain, Denies chest pain with activity, Denies syncope, Denies rapid heart rate, Denies pedal edema, Denies edema, Denies leg edema, Denies li ghtheadedness, Reports palpitations, Denies dyspnea, Reports dyspnea on exertion and Denies orthopnea Resp Denies cough, Denies dyspnea and Reports dyspnea on exertion GI Denies hematochezia and Denies change in stool character Musc Denies abnormal gait, Reports joint swelling, Denies muscle cramps, Denies muscle weakness, Denies numbness, Denies radiating pain into limb and Denies tingling Neuro Denies abnormal gait, Denies dizziness, Denies syncope, Denies numbness, Denies tingling and Denies weakness Endo Reports palpitations Physical Exam Vital Signs: Last Vital Signs Pulse 80 02/12/25 09:22 BP 160/80 H 02/12/25 09:22 BMI result Body Mass Index 30.7 Const General: comfortable and no acute distress Orientation/consciousness: patient oriented x3 HEENT Other: Unremarkable Head: Yes normal to inspection Neck Neck: Yes normal visual inspection Chest Chest palpation & inspection: normal inspection of the chest Resp Auscultation: clear to auscultation bilaterally Cardio Palpation: normal PMI Heart sounds: S1 normal heart sound present, S2 normal heart sound present, no gallops, no murmurs and no rubs GI Palpation (GI): Soft to palpation Back/Spine/Pelvis Other: unremarkable Skin General skin exam: no rashes or lesions noted Neuro General: patient oriented x3 Extrem General: Yes normal to inspection Psych Mental Status: mental status grossly normal Office Procedures EKG Details: EKG with underlying sinus rhythm at 80/Min; left posterior fascicular block pattern; inferior and anterolateral T inversions which could be related to left ventricular hypertrophy pattern. Less likely ischemia. [id number], Complete Assessment & Plan Assessment & Plan (1) Shortness of breath: Code(s): R06.02 - Shortness of breath Category: Medical (2) Type 2 diabetes mellitus with unspecified complications: Code(s): E11.8 - Type 2 diabetes mellitus with unspecified complications Category: Medical (3) Hypertension: Code(s): I10 - Essential (primary) hypertension Category: Medical (4) High cholesterol: Code(s): E78.00 - Pure hypercholesterolemia, unspecified Category: Medical Plan The plan includes conducting a heart ultrasound and a CT scan to evaluate the heart's function and check for any blockages. These tests will help determine the strength of the heart and identify any potential issues contributing to the patient's dyspnea. The patient was advised to monitor his blood pressure closely and manage it effectively. No allergies to IV dye were reported, facilitating the planned diagnostic procedures. Discussion Notes I discussed with the patient the need for a heart ultrasound and a CT scan to assess heart function and check for blockages. We talked about the importance of managing his blood pressure and confirmed no allergies to IV dye, which is necessary for the CT scan. Patient was informed and verbally consented to the use of an ambient scribe for clinic note documentation during this visit. Orders: Orders CA echo transthoracic complete Today R06.02 - Shortness of breath CT Cardiac Coronary Angio Today I25.10 - Atherosclerotic heart disease of [place] coronary artery without angina pectoris, R06.02 - Shortness of breath Basic Metabolic Panel Today R06.02 - Shortness of breath Patient Instructions: - Follow up with scheduled heart ultrasound and CT scan appointments. - Report any new or worsening symptoms immediately. Coding Level of Care Code New Pt Level 4 (77669) Complex EM visit Add On G2211 Diagnoses Shortness of breath R06.02 Type 2 diabetes mellitus with unspecified complications E11.8 Hypertension I10 High cholesterol E78.00 CPT Codes EKG - CPT: 89793-[id number], Complete ([id number])
[2025-02-12 09:22] VITALS: BP 160/80; PULSE 80; BMI 30.7
--- OUTSIDE RECORDS SUMMARY | 2025-02-12 09:51 | XMS_ITS | Clinical Summary ---
Author Organization [address] Address [address] [place] [address] Care Team Providers Care Research Assistant Name Role Phone Natalee Lopez MD Primary Care Provider [phone] Allergies Active Allergy Reactions Criticality Noted Date [...] Date of :1973 (Home) (Work) Address: [address] [place] [address] Payer ID:[id number] Type:Not on file Address: [address] [facility], [place] [phone] Care Teams Research Assistant Relationship Specialty Start Date End Date Natalee Lopez MD PCP - General Internal Medicine 11/24/20
--- OUTSIDE RECORDS SUMMARY | 2025-02-12 09:51 | XMS_ITS | Clinical Summary ---
Author Organization [address] [place] [address] [place] [phone] Phone Care Team Providers Care Life Enrichment Assistant Name Role Phone Natalee Lopez MD Primary Care Provider [phone] Allergies Active Allergy Reactions Criticality Noted Date [...] Panel) 06/18/2024 Colorectal Cancer Screening: Colonoscopy 06/18/2024 HIV Screening 06/18/2024 Hepatitis C Screening 06/18/2024 Social Influencers of Health Screening 06/18/2024 Depression Screening 06/26/2024 Influenza Vaccine (#1) 2025 04/02/2019 DTaP,Tdap,and Td [...] patient's age to complete this topic Insurance [facility] [place] [id number] [facility] [address] [place] [address] Care Teams Life Enrichment Assistant Relationship Specialty Start Date End Date Natalee Lopez MD [address] [facility] [address] [place], [place] PCP - General Internal Medicine 04/30/20
== END 2025-02-12 09:46 | disposition home or self-care (01) ==
LOC: HO.HCS 09:10
PROVIDERS: PCP Internal Medicine; Visit Provider Internal Medicine
DX: R06.02 Shortness of breath (principal); E11.8 Type 2 diabetes mellitus with unspecified complications; I10 Essential (primary) hypertension; E78.00 Pure hypercholesterolemia, unspecified
CPT/HCPCS: 93010; 99204; G2211

== ENCOUNTER → 2025-02-12 09:09 | Outpatient (BNVA) | payer OTHER, SELFPAY | PROVIDERS: PCP Internal Medicine; Visit Provider Internal Medicine | DX: R06.02 Shortness of breath (principal); I25.10 Atherosclerotic heart disease of native coronary artery without angina pectoris; I10 Essential (primary) hypertension; I44.5 Left posterior fascicular block; E78.00 Pure hypercholesterolemia, unspecified; E11.9 Type 2 diabetes mellitus without complications | CPT/HCPCS: 93005 ==

== ENCOUNTER → 2025-04-09 13:29 | Outpatient (REF) | payer OTHER, SELFPAY ==
--- NOTE | 2025-04-09 13:31 | CA_ITS ---
Transthoracic Echocardiogram Patient (Last, First, Middle): Tarik Ny, Gender: M Date of : 1970 Age: 55 Procedure Date: 04/09/2025 Procedure Type: Transthoracic Echocardiogram Location: OP Height: 182.88 cm Weight: 99.79 kg BSA: 2.22 m2 Heart Rate: bpm BP: 132 / 90 mmHg Customer Sales Specialist: TO Referring MD: Louis Prakash MD Symptoms: R06.02 - Shortness of breath Study Quality: Adequate w contrast Conclusions: - 1. Moderately dilated left ventricle with moderately reduced LV ejection fraction of 35-40% with pseudonormal filling pattern. 2. Mildly dilated left atrium 3. Normal cardiac valvular Dopplers 4. Mildly dilated ascending and Arch of the aorta 5. No gross pericardial effusion Findings Procedure Information Contrast agent, definity, is being given per protocol without apparent complications. Left Ventricle Moderately increased left ventricular cavity size. There is mildly increased left ventricular wall thickness. The left ventricular systolic function is moderately decreased. The visually estimated ejection fraction is between 35 40%. Spectral Doppler is indicative of a pseudonormal filling pattern. There is no evidence of a thrombus in the left ventricle. Right Ventricle Normal right ventricular cavity size and systolic function. Atria The left atrium is mildly dilated. There is no evidence of interatrial shunt. The right atrium is normal in size. Aortic Valve Normal aortic valve structure and function. There is no aortic valve stenosis. There is no aortic valve regurgitation. Mitral Valve Normal mitral valve structure and function. There is trace mitral valve regurgitation. There is no mitral valve stenosis. Pulmonic Valve The pulmonic valve is likely normal. Tricuspid Valve Normal tricuspid valve structure. Tricuspid regurgitation envelope is inadequate for calculation of right ventricular systolic pressure. Normal right atrial pressure. Great Vessels The pulmonary artery was not well visualized. There is mild dilatation of the ascending aorta measuring 3.90 cm and mild dilatation of the aortic arch. Venous The inferior vena cava is normal in size and collapses greater than 50% with inspiration. Pericardium/Pleural There is no evidence of pericardial effusion. Prior Study Comparison No prior study available for comparison. Measurements 2D Linear Measurements IVSd: 1.29 0.6-0.9/0.6-1.0 cm LVIDd: 6.36 3.9-5.3/4.2-5.9 cm LVIDd Index: 2.86 2.4-3.2/2.2-3.1 cm/m2 LVIDs: 5.02 2.0-3.6 cm LVPWd: 1.34 0.7-1.1 cm LA Diam: 4.50 2.7-3.8/3.0-4.0 cm LAIDs Index: 2.03 1.5-2.3 cm/m2 LV Mass: 405.55 67-162/88-224 g LV Mass Index: 182.68 43-95/49-115 g/m2 LVOT Diam: 2.50 3.0+(-)1.3 cm 2D Systolic Function EF 4C: 36.80 >55% EF 2C: 34.30 >55% EF BiP: 35.20 >55% Mitral Valve MV Pk E: 0.75 MV PK A: 0.51 MV Decel Time: 142.00 E/A: 1.50 E'Lateral: 8.81 E'Medial: 5.66 E/E' Med: 13.30 E/E' Lat: 8.50 PHT: 42.00 MVA PHT: 5.24 Decel Sarpy: 5.27 Aortic Valve AoV Pk Aureliano: 1.28 AoV Mn Aureliano: 0.98 AoV VTI: 0.26 AoV Pk Grad: 7.00 Aov Mn Grad: 4.00 SCOTT Cont.VTI: 3.24 LVOT LVOT Pk Aureliano: 0.93 LVOT Mn Aureliano: 0.65 LVOT VTI: 0.17 LVOT Pk Grad: 3.00 LVOT Mn Grad: 2.00 LVOT Diam: 2.50 LVOT Area: 4.91 Diastolic Function MV Pk E: 0.75 MV Pk A: 0.51 E/A: 1.50 E'Medial: 5.66 E/E' Med: 13.30 E' Laterial: 8.81 E/E' Lat: 8.50 Right Ventricle TAPSE (mm): 27.60 TVS' Aureliano: 17.20 Tricuspid Valve RA Press: 3.00 Great Vessels Aorta Sinus of Valsalva: 3.88 2.0-3.5 cm Ao Asc: 3.90 2.1-3.4 cm Ao Arch: 4.10 Updated in Other Vendor System with Status of Final Michael Merida MD electronically signed on 04/10/2025 12:15:56 PM with status of Final
--- OUTSIDE RECORDS SUMMARY | 2025-04-09 17:08 | XMS_ITS | Clinical Summary ---
Author Organization [address] [place] [address] [place] [phone] Phone Care Team Providers Care Medical Records Library Professor Name Role Phone Natalee Lopez MD Primary Care Provider [phone] Allergies Active Allergy Reactions Criticality Noted Date [...] Health Maintenance Due Date Last Done Comments Colorectal Cancer Screening: Colonoscopy 1970 Hepatitis B Vaccines (3 of 3 - 19+ 3-dose series) 03/11/2004 12/18/2003, 09/09/2003 Pneumococcal Vaccine: 50+ Years (2 of 2 - PCV) 2019 01/01/2016 Zoster Vaccines (1 of 2) 2019 Cholesterol Screening (Lipid Panel) 06/18/2024 HIV Screening 06/18/2024 Hepatitis C Screening 06/18/2024 Social Influencers of Health Screening 06/18/2024 Depression Screening 06/26/2024 COVID-19 Vaccine (1 - 2023-2 5 season) 2025 Influenza Vaccine (#1) 2025 04/02/2019 DTaP,Tdap,and Td Vaccines (2 - Td or Tdap) 11/22/2030 11/22/2020 RSV Immunization Adult Patients (1 - 1-dose 75+ series) 02/27/2044 HIB Vaccines Aged Out No longer eligi [...] patient's age to complete this topic Insurance [facility] [address] [place] [address] Care Teams Medical Records Library Professor Relationship Specialty Start Date End Date Natalee Lopez MD [address] [place], [place] PCP - General Internal Medicine 04/30/20
== END ==
LOC: HO.CARD 13:29
PROVIDERS: PCP Internal Medicine; Visit Provider Internal Medicine
DX: R06.02 Shortness of breath (principal)
CPT/HCPCS: 93306; Q9957

== ENCOUNTER → 2025-04-09 13:31 | Outpatient (BNV) | payer OTHER, SELFPAY | PROVIDERS: PCP Internal Medicine; Visit Provider Internal Medicine Cardiovascular Disease | DX: I51.7 Cardiomegaly (principal); I77.810 Thoracic aortic ectasia | CPT/HCPCS: 93306 ==

== ENCOUNTER 2025-04-12 09:31 | Outpatient (REF) | payer OTHER, SELFPAY ==
--- OUTSIDE RECORDS SUMMARY | 2025-04-12 09:34 | XMS_ITS | Clinical Summary ---
Author Organization [address] Address [address] [place] [address] Care Team Providers Care Roving Weight Gauger Name Role Phone Naatlee Lopez MD Primary Care Provider [phone] Allergies Active Allergy Reactions Criticality Noted Date [...] 2 Dose Standard Series) 2019 Influenza vaccine 01/24/2025 Covid-19 vaccine series (1 - 2023-25 season) 2025 RSV Immunization (1 - 1-dose 75+ series) 02/27/2044 Meningococcal B Vaccine Aged Out No l onger eligible based on patient's age to complete this topic Meningococcal Vaccine Aged Out No asim armani eligible based on patient's age to complete this topic Insurance [employer] Care Teams Roving Weight Gauger Relationship Specialty Start Date End Date Natalee Lopez MD PCP - General Internal Medicine 11/24/20
--- OUTSIDE RECORDS SUMMARY | 2025-04-12 09:34 | XMS_ITS | Clinical Summary ---
Author Organization [address] [place] [address] [place] [phone] Phone Care Team Providers Care Ux Ui Designer Name Role Phone Natalee Lopez MD Primary Care Provider [phone] Allergies Active Allergy Reactions Criticality Noted Date [...] patient's age to complete this topic Insurance [facility] [address] [place] [address] Care Teams Ux Ui Designer Relationship Specialty Start Date End Date Natalee Lopez MD [address] [place], [place] PCP - General Internal Medicine 04/30/20
[2025-04-12 11:29] LABS: Alanine Aminotransferase 27 U/L (0-40); Albumin Level 4.4 g/dL (3.5-5.0); Alkaline Phosphatase 57 U/L (39-117); Anion Gap 15 (12-20); Aspartate Amino Transferase 17 U/L (5-37); Blood Urea Nitrogen 22 mg/dL (9-16); Calcium 9.4 mg/dL (8.4-10.2); Carbon Dioxide 23 mmol/L (22-29); Chloride 108 mmol/L (96-108); Estimated Glomerular Filt Rate > 60; Potassium 3.6 mmol/L (3.3-5.1); Sodium 142 mmol/L (135-145); Total Protein 7.1 g/dL (6.5-8.0)
== END 2025-04-12 09:32 | disposition home or self-care (01) ==
LOC: HO.LAB 09:31
PROVIDERS: PCP Internal Medicine; Visit Provider Internal Medicine
DX: Z00.01 Encounter for general adult medical examination with abnormal findings (principal); E11.65 Type 2 diabetes mellitus with hyperglycemia; E78.00 Pure hypercholesterolemia, unspecified; R80.8 Other proteinuria
CPT/HCPCS: 36415; 80053; 83036

== ENCOUNTER 2025-06-16 12:27 | Outpatient (AMB) | payer OTHER, SELFPAY ==
[2025-06-16 12:56] VITALS: BP 100/70; PULSE 68; BMI 30.4
--- NOTE | 2025-06-16 12:56 | MHC.OFFVIS ---
Vital Signs 06/16/25 12:56 Height 5 ft 10 in Weight 211 lb 10.3 oz BMI 30.4 BP 100/70 Blood Pressure Location Lt brachial Position Sitting Pulse 68 Pulse Source Pulse Oximeter Intake Visit Reasons: results Allergies lisinopril Adverse Reaction (Unknown, Verified 09/05/24 15:46) Unknown Milk Containing Products (Dairy) Adverse Reaction (Unknown, Verified 09/05/24 15:46) Unknown egg whites Adverse Reaction (Unknown, Uncoded 08/19/24 13:14) Unknown Medication List - Last Reconciled 06/16/25 by Louis Prakash MD amlodipine 10 mg PO DAILY atorvastatin 80 mg PO DAILY carvedilol 25 mg PO BID dulaglutide (Trulicity) mg subcut insulin glargine (Lantus U-100 Insulin) 25 units subcut BID metformin 1,000 mg PO DAILY oxycodone 5 mg PO Q6H PRN HPI Comments Details: Tarik returns for follow-up. Recently seen in consultation regarding shortness of breath. He was describing episodes with tying his shoe lace, intermittently happening with walking/physical activity but nothing consistent. No clear exertional angina. Multiple cardiovascular risk factors including diabetes, hypertension, dyslipidemia. He has completed a coronary CTA and an echocardiogram. Feels just about the same as before. [facility] Medical History (Updated 06/16/25 @ 13:05 by Louis Prakash MD) Atherosclerotic cardiovascular disease High cholesterol Hypertension Diabetes Surgical History Status post excision of lipoma (08/21/24) History of ankle surgery Family History (Updated 02/12/25 @ 09:32 by Vicenta Colon) Mother Bradycardia Father Stented coronary artery Social History Alcohol intake: current Alcohol intake frequency: holidays/special occasions only Patient Tobacco Use Status: Never used Tobacco Review of Systems Const Denies weakness ENT Denies dizziness Card Denies chest pain, Denies chest pain with activity, Denies syncope, Denies rapid heart rate, Denies pedal edema, Denies edema, Denies leg edema, Denies lightheadedness, Denies palpitations, Denies dyspnea, Denies dyspnea on exertion and Denies orthopnea Resp Denies cough, Denies dyspnea and Denies dyspnea on exertion GI Denies hematochezia and Denies change in stool character Musc Denies abnormal gait, Denies muscle cramps, Denies muscle weakness, Denies numbness, Denies radiating pain into limb and Denies tingling Neuro Denies abnormal gait, Denies dizziness, Denies syncope, Denies numbness, Denies tingling and Denies weakness Endo Denies palpitations Physical Exam Vital Signs: Last Vital Signs Pulse 68 06/16/25 12:56 BP 100/70 06/16/25 12:56 BMI result Body Mass Index 30.4 Const General: comfortable and no acute distress Orientation/consciousness: patient oriented x3 HEENT Other: Unremarkable Head: Yes normal to inspection Neck Neck: Yes normal visual inspection Chest Chest palpation & inspection: normal inspection of the chest Resp Auscultation: clear to auscultation bilaterally Cardio Palpation: normal PMI Heart sounds: S1 normal heart sound present, S2 normal heart sound present, no gallops, no murmurs and no rubs GI Palpation (GI): Soft to palpation Back/Spine/Pelvis Other: unremarkable Skin General skin exam: no rashes or lesions noted Neuro General: patient oriented x3 Extrem General: Yes normal to inspection Psych Mental Status: mental status grossly normal Assessment & Plan Assessment & Plan (1) Atherosclerotic cardiovascular disease: Code(s): I25.10 - Atherosclerotic heart disease of [place] coronary artery without angina pectoris Category: Medical (2) Cardiomyopathy: Code(s): I42.9 - Cardiomyopathy, unspecified Category: Medical (3) Type 2 diabetes mellitus with unspecified complications: Code(s): E11.8 - Type 2 diabetes mellitus with unspecified complications Category: Medical (4) Hypertension: Code(s): I10 - Essential (primary) hypertension Category: Medical (5) High cholesterol: Code(s): E78.00 - Pure hypercholesterolemia, unspecified Category: Medical Plan Cardiac studies reviewed. In the echocardiogram, LVEF is 35-40%. Moderate diastolic dysfunction. No significant valvular findings. Ascending aortic size 3.9 cm. In the coronary CTA, multifocal, 50-70% stenosis related to mixed plaque in the mid LAD. Proximal/mid circumflex junction with calcific plaque in 25-50% stenosis. Low normal FFR in the distal LAD. Borderline low in terminal LAD. We will plan on a diagnostic catheterization and possible LAD intervention. The cardiomyopathy itself could be mixed related to coronary disease as well as hypertension. Blood pressures have been elevated in the past but today's blood pressure is completely normal. He may need additional medications for blood pressure in the future. We discussed about this today. With regard to diabetes, again not well controlled as the hemoglobin A1c is 9.3%. That will need to be optimized. For dyslipidemia on statins in the last LDL is 74 mg/dL. We will plan on follow up after the catheterization. In the interim, advised cut back on any strenuous physical activity. If worsening symptoms like persistent chest pains, will need to seek emergency care. Discussion Notes: I informed the patient that his recent tests are abnormal but do not indicate an immediate, dangerous situation. I explained that a CT scan shows a blockage in an artery in the front of his heart, the LAD, and that his echocardiogram shows his heart is not squeezing well, which is causing his shortness of breath. I noted that these cardiac issues are likely a result of his combined history of diabetes, high blood pressure, and cholesterol. I recommended a cardiac catheterization to further assess the blockage and determine if a stent is necessary. We discussed that the procedure would be performed at [facility], involves placing a catheter in the wrist, and that he has no allergies to IV contrast dye. I advised him to start taking baby aspirin daily and to limit strenuous workouts for the time being. We addressed his consistently high blood pressure and the possibility of needing more medication to control it. I confirmed he can travel a few days after the procedure but should be mindful of potential wrist pain when lifting bags. We will arrange for the cardiac tests next month and a follow-up visit afterward. Patient was informed and verbally consented to the use of an ambient scribe for clinic note documentation during this visit. Orders: Orders Cardiac Cath LT w PCI Today I25.10 - Atherosclerotic heart disease of [place] coronary artery without angina pectoris Complete Blood Count no Diff Today I25.10 - Atherosclerotic heart disease of [place] coronary artery without angina pectoris Basic Metabolic Panel Today I25.10 - Atherosclerotic heart disease of [place] coronary artery without angina pectoris Prothrombin Time INR Today I25.10 - Atherosclerotic heart disease of [place] coronary artery without angina pectoris Coding Level of Care Code Est Pt Level 4 (20942) Add On Problem Visit Only Diagnoses Atherosclerotic cardiovascular disease I25.10 Cardiomyopathy I42.9 Type 2 diabetes mellitus with unspecified complications E11.8 Hypertension I10 High cholesterol E78.00
--- OUTSIDE RECORDS SUMMARY | 2025-06-16 15:38 | XMS_ITS | Clinical Summary ---
Author Organization [address] [place] [address] [place] [phone] Phone Care Team Providers Care Shift Supervisor Name Role Phone Natalee Lopez MD Primary Care Provider [phone] Allergies Active Allergy Reactions Criticality Noted Date [...] Depression Screening 06/26/2024 COVID-19 Vaccine (1 - 2024-2 6 season) 2025 Influenza Vaccine (#1) 2025 04/02/2019 [...] patient's age to complete this topic Insurance [facility] [address] [place] [address] Care Teams Shift Supervisor Relationship Specialty Start Date End Date Natalee Lopez MD [address] [place], [place] PCP - General Internal Medicine 04/30/20
--- OUTSIDE RECORDS SUMMARY | 2025-06-16 15:38 | XMS_ITS | Clinical Summary ---
Author Organization [address] Address [address] [place] [address] Care Team Providers Care Secondary History Teacher Name Role Phone Natalee Lopez MD Primary Care Provider [phone] Allergies Active Allergy Reactions Criticality Noted Date [...] vaccine 01/24/2025 Covid-19 vaccine series (1 - 2024- season) 2025 RSV Immunization (1 - 1-dose 75+ series) 02/27/2044 Meningococcal B Vaccine Aged Out No l onger eligible based on patient's age to complete this topic Meningococcal Vaccine Aged Out No asim armani eligible based on patient's age to complete this topic Insurance [employer] Care Teams Secondary History Teacher Relationship Specialty Start Date End Date Natalee Lopez MD PCP - General Internal Medicine 11/24/20
== END 2025-06-16 13:17 | disposition home or self-care (01) ==
LOC: HO.HCS 12:27
PROVIDERS: PCP Internal Medicine; Visit Provider Internal Medicine
DX: I25.10 Atherosclerotic heart disease of native coronary artery without angina pectoris (principal); I42.9 Cardiomyopathy, unspecified; E11.8 Type 2 diabetes mellitus with unspecified complications; I10 Essential (primary) hypertension; E78.00 Pure hypercholesterolemia, unspecified
CPT/HCPCS: 99214; G2211